=== PATIENT | female | born 1990 | race Two or more races ===

== ENCOUNTER 2018-08-19 13:00 | Inpatient (IN) | payer OTHER ==
[~2018-08-19] VITALS: Ht 160 cm; Wt 73.5 kg
[2018-08-28] MEDS ORDERED: PRENATAL TABLE1 EAC1 PO (19:13)
[2018-08-28] MEDS ORDERED: IRON325 MG PO (19:13)
== END 2018-08-31 13:10 | DRG 807 ==
LOC: LDR 13:00 → OB/GYN 08-28 18:46 → LDR 08-28 18:46 → OB/GYN 08-29 15:59
PROC: 10E0XZZ Delivery of Products of Conception, External Approach (ICD-10-PCS; principal; 2018-08-29)
PROC: 0HQ9XZZ Repair Perineum Skin, External Approach (ICD-10-PCS; 2018-08-29)
PROC: 4A1HXCZ Monitoring of Products of Conception, Cardiac Rate, External Approach (ICD-10-PCS; 2018-08-29)
DX: O70.0 First degree perineal laceration during delivery (principal); Z37.0 Single live birth; Z3A.38 38 weeks gestation of pregnancy

== ENCOUNTER 2018-08-22 16:15 | Outpatient (CLI) | payer OTHER | END 2018-08-22 18:24 | disposition home or self-care (01) | LOC: OBS/DEL 16:15 | DX: O36.8130 Decreased fetal movements, third trimester, not applicable or unspecified (principal); Z34.03 Encounter for supervision of normal first pregnancy, third trimester ==

== ENCOUNTER → 2020-07-20 | Outpatient (CLI) | payer OTHER ==
[~2020-07-20] MED LIST: IRON325 MG PO; PRENATAL TABLE1 EAC1 PO
== END | disposition home or self-care (01) ==
LOC: PRENATAL 09:00
PROVIDERS: ATTEND Obstetrics & Gynecology Maternal & Fetal Medicine
DX: O35.0XX1 Maternal care for (suspected) central nervous system malformation in fetus, fetus 1 (principal); O35.3XX1 Maternal care for (suspected) damage to fetus from viral disease in mother, fetus 1; O98.53 Other viral diseases complicating the puerperium; Z36.89 Encounter for other specified antenatal screening; Z3A.33 33 weeks gestation of pregnancy

== ENCOUNTER 2020-08-12 07:00 | Inpatient (IN) | payer OTHER ==
[~2020-08-12] VITALS: Ht 160 cm; Wt 72.6 kg
[2020-08-12] MEDS ORDERED: PROFERRIN-FORT1 EACH (16:40)
[2020-08-16] MEDS ORDERED: CODE1TAB37 PO (07:53)
[2020-08-16] MEDS ORDERED: IBUPROFEN400 MG PO (07:53)
== END 2020-08-16 13:37 | disposition home or self-care (01) | DRG 788 ==
LOC: LDR 07:00 → O/R 19:55 → SURG-SUITE 20:00
PROVIDERS: Obstetrics & Gynecology; ADMIT Obstetrics & Gynecology; ATTEND Obstetrics & Gynecology
PROC: 4A1HXFZ Monitoring of Products of Conception, Cardiac Rhythm, External Approach (ICD-10-PCS; 2020-08-12)
PROC: 3E033VJ Introduction of Other Hormone into Peripheral Vein, Percutaneous Approach (ICD-10-PCS; 2020-08-12)
PROC: 10D00Z1 Extraction of Products of Conception, Low, Open Approach (ICD-10-PCS; principal; 2020-08-12 18:00)
DX: O62.1 Secondary uterine inertia (principal); O64.1XX0 Obstructed labor due to breech presentation, not applicable or unspecified; Z3A.37 37 weeks gestation of pregnancy; Z37.0 Single live birth